=== PATIENT | female | born 1945 | race Caucasian/White ===

== ENCOUNTER → 2017-03-06 | Outpatient (CLI) | payer MEDICARE ==
[~2017-03-06] MED LIST: ADVIL200 M1 PO; ASPIRIN EC81 MG PO; B COMPLEX1 EACH PO; CALCIUM600 MG PO; HYDROCHLOROTHIA25 MG PO; MELATONIN3 MG PO; PRESERVISION A1 EAC2 PO; TUMERSAID TABL1 EACH PO; VISTARIL25 MG PO; VITAMIN D32000 UNI1 PO
[2017-03-06 15:12] LABS: BUN/CREATININE RATIO 40 (0-10)
== END ==
LOC: LAB 12:53
PROVIDERS: Orthopaedic Surgery
DX: I10 Essential (primary) hypertension (principal)
CPT/HCPCS: 36415; 80048; 86850; 86900; 86901

== ENCOUNTER 2017-03-07 07:45 | Inpatient (IN) | payer MEDICARE ==
[~2017-03-07] VITALS: Ht 165.1 cm; Wt 71.2 kg
[2017-03-07] MEDS ORDERED: VISTARIL25 MG PO (11:02)
[2017-03-07] MEDS ORDERED: MELATONIN3 MG PO (11:02)
[2017-03-07] MEDS ORDERED: HYDROCHLOROTHIA25 MG PO (11:03)
[2017-03-07] MEDS ORDERED: ASPIRIN EC81 MG PO (11:04)
[2017-03-07] MEDS ORDERED: VITAMIN D32000 UNI1 PO (11:05)
[2017-03-07] MEDS ORDERED: TUMERSAID TABL1 EACH PO (11:06)
[2017-03-07] MEDS ORDERED: CALCIUM600 MG PO (11:06)
[2017-03-07] MEDS ORDERED: ADVIL200 M1 PO (11:07)
[2017-03-07] MEDS ORDERED: PRESERVISION A1 EAC2 PO (11:08)
[2017-03-07] MEDS ORDERED: B COMPLEX1 EACH PO (11:09)
[2017-03-08 05:03] LABS: RED BLOOD COUNT 3.11 M/UL (4.00-5.10)
[2017-03-08 05:28] LABS: BUN/CREATININE RATIO 35 (0-10)
[2017-03-08 18:55] LABS: HEMOGLOBIN 9.8 gm/dl (12.3-15.3)
[2017-03-09 06:00] LABS: RED BLOOD COUNT 3.07 M/UL (4.00-5.10); WHITE BLOOD COUNT 6.9 K/UL (4.5-11.0)
[2017-03-09 06:02] LABS: BUN/CREATININE RATIO 40 (0-10)
[2017-03-09] MEDS ORDERED: ELIQUIS2.5 MG PO (15:15)
[2017-03-09] MEDS ORDERED: NORCO 7.5-3251 EACH PO (15:15)
== END 2017-03-09 16:42 | disposition home or self-care (01) | DRG 470 ==
LOC: ZOBSOF 09:01 → M/S 18:25
PROVIDERS: Internal Medicine; ADMIT Orthopaedic Surgery
PROC: 0SR902A Replacement of Right Hip Joint with Metal on Polyethylene Synthetic Substitute, Uncemented, Open Approach (ICD-10-PCS; principal; 2017-03-07 12:45)
DX: M16.11 Unilateral primary osteoarthritis, right hip (principal); D62 Acute posthemorrhagic anemia; G89.29 Other chronic pain; Z79.82 Long term (current) use of aspirin; Z23 Encounter for immunization; I10 Essential (primary) hypertension; K21.9 Gastro-esophageal reflux disease without esophagitis; F41.9 Anxiety disorder, unspecified; Z85.828 Personal history of other malignant neoplasm of skin; Z80.9 Family history of malignant neoplasm, unspecified; Z98.49 Cataract extraction status, unspecified eye; E87.6 Hypokalemia; D69.6 Thrombocytopenia, unspecified
CPT/HCPCS: 36415; 72170; 73502; 76000; 80048; 85014; 85018; 85025; 97110; 97116; 97530; 97535; C1776; J0171; J0690; J0735; J1885; J2250; J2274; J2370; J2795; J3010; J7030; J7050; J7120; Q0177